=== PATIENT | female | born 1965 | race African-American/Black ===

== ENCOUNTER 2021-07-19 15:43 | Inpatient (IN) | payer OTHER ==
[~2021-07-19] VITALS: Ht 162.6 cm; Wt 91.0 kg
--- NOTE | 2021-07-19 16:07 | PHYS DOC ---
Past Medical History Past Medical History: High Cholesterol, Hypertension, Vascular Disease Past Medical History Aortic aneurysm Past Surgical History Aortic aneurysm repair Smoking Status: Never Smoker Alcohol Use: None Drug Use: None General Adult EDM: Chief Complaint: CHEST PAIN HPI: HPI: Patient is a 56 year old female who presents with an episode of chest pain which began last night. She describes midsternal chest pressure, radiating across her right and left chest, 3 to her left back. Sometimes lasted several minutes, then resolved. She decided to go to bed, then when she woke up today she has had intermittent midsternal chest pressure. She denies any dyspnea, denies pleuritic pain. Denies cough hemoptysis. Denies fevers or chills. She denies dizziness or diaphoresis. Denies lower extremity pain or swelling. Denies syncope or near syncope. Denies exertional pain. Several years ago she underwent a descending aortic aneurysm repair. She reports having no issues with that since that time. She is not taking anticoagulant medications. She denies any history of aortic dissection. Review of Systems: Review of Systems: As per HPI. Heart Score: C/O Chest Pain: Yes HEART Score for Chest Pain: HEART Score for Chest Pain Response (Comments) Value History Highly Suspicious 2 ECG Nonspecific Repolarizatio 1 Age >45 - < 65 1 Risk Factors 1 or 2 Risk Factors 1 Total 5 Risk Factors: Risk Factors: DM, Current or recent (<one month) smoker, HTN, HLP, family history of CAD, obesity. Risk Scores: Score 0 - 3: 2.5% MACE over next 6 weeks - Discharge Home Score 4 - 6: 20.3% MACE over next 6 weeks - Admit for Clinical Observation Score 7 - 10: 72.7% MACE over next 6 weeks - Early Invasive Strategies Allergies: Allergies: Allergies Coded Allergies Type Severity Reaction Last Updated Verified No Known Drug Allergies 07/19/21 No Physical Exam: PE: Constitutional: Well developed, well nourished, no acute distress, non-toxic appearance. [] HENT: Normocephalic, atraumatic, bilateral external ears normal, oropharynx moist, no oral exudates, nose normal. [] Eyes: PERRLA, EOMI, conjunctiva normal, no discharge. [] Neck: Normal range of motion, no tenderness, supple, no stridor. [] Cardiovascular:Heart rate regular rhythm, no murmur [] Lungs & Thorax: Bilateral breath sounds clear to auscultation [] Abdomen: Bowel sounds normal, soft, no tenderness, no masses, no pulsatile masses. [] Skin: Warm, dry, no erythema, no rash. [] Back: No tenderness, no CVA tenderness. [] Extremities: No tenderness, no cyanosis, no clubbing, ROM intact, no edema. [] Neurologic: Alert and oriented X 3, normal motor function, normal sensory function, no focal deficits noted. [] Psychologic: Affect normal, judgement normal, mood normal. [] Current Patient Data: Vital Signs: Vital Signs Date Time Temp Pulse Resp B/P (MAP) Pulse Ox O2 Delivery O2 Flow Rate FiO2 07/19/21 15:46 98.1 70 20 241/110 (153) 100 Room Air 98.1 EKG: EKG: EKG is interpreted at 1600 Rhythm is sinus Rate is 74 bpm [place] is normal No STEMI Radiology/Procedures: Radiology/Procedures: IMAGING REPORT Signed PATIENT: KOLE LLANOS ACCOUNT: [id number] : 1965 LOCATION: ER AGE: 56 SEX: F EXAM STATUS: REG ER ORD. PHYSICIAN: ABDOULAYE DAUGHERTY DO REASON: chest pain, hx of aortic aneurysm PROCEDURE: CT ANGIO CHEST ABD PELVIS PQRS Compliance Statement: One or more of the following individualized dose reduction techniques were utilized for this examination: 1. Automated exposure control 2. Adjustment of the mA and/or kV according to patient size 3. Use of iterative reconstruction technique CTA CHEST_ABDOMEN_AND PELVIS 07/19/2021 5:31 PM INDICATION: Chest pain, history of aortic aneurysm. COMPARISON: None avail06/23/2018able TECHNIQUE: Multiple axial CT images of the chest, abdomen and pelvis were obtained before and after the intravenous administration of 100 mL Omnipaque 350. Coronal and sagittal reformats are provided. Maximum intensity projection images are provided. FINDINGS: Thyroid gland is normal in appearance. There are no pathologically enlarged axillary, mediastinal or hilar lymph nodes. Heart size is within normal limits. Aortic stent graft is identified extending from the origin the left subclavian artery to the mid to distal descending thoracic aorta. There is an excluded aneurysm involving the descending aortic arch which measures 5.2 cm. No contrast is identified beyond the stent graft. Ascending thoracic aorta measures 3.7 cm. There is no significant pericardial effusion. Thoracic esophagus is normal in appearance. Anterior chest wall appears intact. No suspicious solid noncalcified pulmonary nodule. There are no pleural effusions, pulmonary vascular congestion or pneumothorax. Lungs are clear without focal airspace consolidation. Central airways are clear. Liver, spleen, adrenal glands, pancreas and gallbladder are normal in appearance. The abdominal aorta is normal in course and caliber. There is no aortic dissection. Superior mesenteric artery, celiac axis and renal arteries are widely patent. Common iliac arteries, internal iliac arteries and external iliac arteries are widely patent. There are no pathologically enlarged lymph nodes in the abdomen and pelvis. There is no abdominal free fluid. There is no free intraperitoneal air. Small and large bowel are normal in caliber. There is no evidence for bowel obstruction. There are no pericolonic inflammatory changes. A normal, nondilated appendix is visualized without adjacent inflammatory changes. Limited evaluation of the left colon secondary to underdistention. Small local hernia containing fat. The kidneys enhance symmetrically. There is no suspicious renal mass. There is no hydronephrosis. There are no suspected calculi within the kidneys, ureters or urinary bladder. Urinary bladder is within normal limits given degree of diste ntion. Uterus is normal by CT. Mild adnexal varices. No suspicious adnexal mass. No suspicious osseous abnormality. No paraspinal soft tissue mass. IMPRESSION: 1. Aortic stent graft is identified extending distal to the origin of the left subclavian through the mid to distal descending thoracic aorta. 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 2. No aortic dissection. 3. No acute abnormality within the abdomen and pelvis. Electronically signed by: Yony Vargas MD (07/19/2021 6:44 PM) [facility] DICTATED and SIGNED BY: YONY VARGAS MD DATE: 07/19/211829 Course & Med Decision Making: Course & Med Decision Making Pertinent Labs and Imaging studies reviewed. (See chart for details) Patient had already taken her aspirin at home today. Nitropaste and IV labetalol given. Tylenol given for headache. Blood pressure is improving modestly. She is resting comfortably. She denies any active chest pain at this time. Initial troponin is negative. CTA does not reveal any acute dissection. No endoleak. I have discussed the findings, differential diagnosis and plan of care with her. I recommend hospitalization, troponin trending, cardiology consultation. She is comfortable with the plan of care. She is excepted for admission by Dr. Demar Ashley Disclaimer: Gabi Disclaimer: This electronic medical record was generated, in whole or in part, using a voice recognition dictation system. Departure Departure Impression: Primary Impression: Chest pain Qualified Codes: R07.9 - Chest pain, unspecified Additional Impression: Hypertensive emergency Disposition: ADMITTED INPATIENT Admitting Physician: MARCELLO (Dr. Benz) Condition: GUARDED DAT,ABDOULAYE Parisi DO Jul 19, 2021 16:07
--- NOTE | 2021-07-19 16:25 | EKG ---
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
[2021-07-19] MEDS ORDERED: NITROGLYCERIN OINT 1 GM PACKET. TP ONE (16:45)
[2021-07-19 16:58] LABS: BASO % 1 % (0-3); EOS # 0.1 x10^3/uL (0.0-0.7); EOS % 1 % (0-3); HEMATOCRIT 40.8 % (36.0-47.0); HEMOGLOBIN 13.4 g/dL (12.0-15.5); LYMPH # 1.9 x10^3/uL (1.0-4.8); LYMPH % 25 % (24-48); MEAN CORPUSCULAR HEMOGLOBIN 30 pg (25-35); MEAN CORPUSCULAR HGB CONC 33 g/dL (31-37); MEAN CORPUSCULAR VOLUME 91 fL (79-100); MONO # 0.6 x10^3/uL (0.0-1.1); MONO % 8 % (0-9); NEUT % 65 % (31-73); PLATELET COUNT 232 x10^3/uL (140-400); WHITE BLOOD COUNT 7.7 x10^3/uL (4.0-11.0)
[2021-07-19 17:12] LABS: CALCIUM 9.6 mg/dL (8.5-10.1); CREATININE 0.8 mg/dL (0.6-1.0); GFR 90.1; POTASSIUM 3.6 mmol/L (3.5-5.1)
[2021-07-19 17:18] LABS: ALBUMIN 3.8 g/dL (3.4-5.0); ALBUMIN/GLOBULIN RATIO 0.9 (1.0-1.7); TOTAL BILIRUBIN 0.5 mg/dL (0.2-1.0); TOTAL PROTEIN 8.2 g/dL (6.4-8.2)
[2021-07-19] MEDS ORDERED: IOHEXOL 350 MG/ML 100 ML VIAL. IV ONE (17:45)
[2021-07-19] MEDS ORDERED: CONTRAST GIVEN. MC PRN (17:45)
[2021-07-19] MEDS ORDERED: ACETAMINOPHEN 500 MG TABLET PO ONE (18:45)
[2021-07-19] MEDS ORDERED: LABETALOL 20 MG/4 ML DISP.SYRIN. IVP ONE (18:45)
--- NOTE | 2021-07-19 18:47 | RAD ---
PQRS Compliance Statement: One or more of the following individualized dose reduction techniques were utilized for this examinat ion: 1. Automated exposure control 2. Adjustment of the mA and/or kV according to patient size 3. Use of iterative reconstruction technique CTA CHEST_ABDOMEN_AND PELVIS 07/19/2021 5:31 PM INDICATION: Chest pain, history of aortic aneurysm. COMPARISON: None avail06/23/2018able TECHNIQUE: Multiple axial CT images of the chest, abdomen and pelvis were obtained before and after t he intravenous administration of 100 mL Omnipaque 350. Coronal and sagittal reformats are provided. M aximum intensity projection images are provided. FINDINGS: Thyroid gland is normal in appearance. There are no pathologically enlarged axillary, mediastinal or hilar lymph nodes. Heart size is within normal limits. Aortic stent graft is identified extending from the origin the left subclavian artery to the mid to distal descending thoracic aorta. There is an excluded aneurysm involving the descendi ng aortic arch which measures 5.2 cm. No contrast is identified beyond the stent graft. Ascending tho racic aorta measures 3.7 cm. There is no significant pericardial effusion. Thoracic esophagus is norm al in appearance. Anterior chest wall appears intact. No suspicious solid noncalcified pulmonary nodule. There are no pleural effusions, pulmonary vascular congestion or pneumothorax. Lungs are clear without focal airspace consolidation. Central airways ar e clear. Liver, spleen, adrenal glands, pancreas and gallbladder are normal in appearance. The abdominal aorta is normal in course and caliber. There is no aortic dissection. Superior mesenter ic artery, celiac axis and renal arteries are widely patent. Common iliac arteries, internal iliac ar teries and external iliac arteries are widely patent. There are no pathologically enlarged lymph node s in the abdomen and pelvis. There is no abdominal free fluid. There is no free intraperitoneal air. Small and large bowel are normal in caliber. There is no evidence for bowel obstruction. There are no pericolonic inflammatory changes. A normal, nondilated appendix is visualized without adjacent infla mmatory changes. Limited evaluation of the left colon secondary to underdistention. Small local herni a containing fat. The kidneys enhance symmetrically. There is no suspicious renal mass. There is no hydronephrosis. The re are no suspected calculi within the kidneys, ureters or urinary bladder. Urinary bladder is within normal limits given degree of distention. Uterus is normal by CT. Mild adnexal varices. No suspiciou s adnexal mass. No suspicious osseous abnormality. No paraspinal soft tissue mass. IMPRESSION: 1. Aortic stent graft is identified extending distal to the origin of the left subclavian through the mid to distal descending thoracic aorta. There is an aneurysm of the descending aortic arch which me asures up to 5.2 cm without evidence for endoleak. 2. No aortic dissection. 3. No acute abnormality within the abdomen and pelvis. Electronically signed by: Katherine Alvarez MD (07/19/2021 6:44 PM) [facility]
[2021-07-19] MEDS ORDERED: ONDANSETRON PF 4 MG/2 ML VIAL. IVP PRN (19:15)
[2021-07-19] MEDS ORDERED: ACETAMINOPHEN 325 MG TABLET. PO PRN (19:15)
[2021-07-19] MEDS ORDERED: IV NORMAL SALINE 1000ML BAG 1,000 ML IV ONE (19:15)
[2021-07-19 20:40] VITALS: BP 186/102
[2021-07-19] MEDS ORDERED: METF750T39 PO (21:01)
[2021-07-19] MEDS ORDERED: ASCO500C PO (21:01)
[2021-07-19] MEDS ORDERED: LOSA100T14 PO (21:01)
[2021-07-19] MEDS ORDERED: GLIM4TAB8 PO (21:01)
[2021-07-19] MEDS ORDERED: ASPI-630 PO (21:01)
[2021-07-19] MEDS ORDERED: FERR325T3 PO (21:01)
[2021-07-19] MEDS ORDERED: AMLO-187 PO (21:01)
[2021-07-19] MEDS ORDERED: CARV25TA2 PO (21:01)
--- NOTE | 2021-07-19 21:56 | NUR ---
Admission note patient arrived to unit at 2044. oriented to nurse call light system and routines. belongings with patient charted. med rec completed. pt alert and oriented. able to ambulate from ER [facility] to bed. no complaints of pain at this time. Dr. Benz paged and return page received now. Alerted of arrival to unit and BP and blood glucose. Provider to place orders.
[2021-07-19] MEDS ORDERED: DEXTROSE 50% 25 GM / 50ML DISP.SYRIN. IV PRN (22:15)
[2021-07-19] MEDS ORDERED: IV DEXTROSE 5% 250 ML BAG. IV PRN (22:15)
[2021-07-19 22:43] VITALS: BP 168/94
[2021-07-19] MEDS: hydrALAZINE 20 MG/ML VIAL. IVP PRN (23:25)
[2021-07-20] VITALS (7 sets, daily range): BP systolic 145–222; BP diastolic 73–109
--- NOTE | 2021-07-20 07:55 | PDOC1 ---
History and Physical Date of Admission Date of Admission DATE: 07/20/21 TIME: 07:44 Identification/Chief Complaint Chief Complaint Chest pain Source Source: Patient History of Present Illness History of Present Illness Ms Cottrell is a 56 year old female w/ PMHx High Cholesterol, Hypertension, Vascular Disease, aortic aneursym s/p endograft repair who presents with an episode of chest pain which began last night. She describes midsternal chest pressure, radiating across her right and left chest, 3 to her left back. Sometimes lasted several minutes, then resolved. She decided to go to bed, then when she woke up today she has had intermittent midsternal chest pressure. She denies any dyspnea, denies pleuritic pain. Denies cough hemoptysis. Denies fevers or chills. She denies dizziness or diaphoresis. Denies lower extremity pain or swelling. Denies syncope or near syncope. Denies exertional pain. Several years ago in 2016 she underwent a descending aortic aneurysm repair. She reports having no issues with that since that time. She is not taking anticoagulant medications. She denies any history of aortic dissection. She sees Dr. James from cardiology and Dr. Amador at [facility] primary care. Previously had been on HCTZ when she lived in [place] and has been taken off that she thinks due to hypokalemia. 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 EKG sinus rate of 74 bpm normal axis AK interval extended to T10, QTC 407. No ST segment elevations or depressions no TWI For blood pressure control she was put on Nitropaste and given IV labetalol with minimal improvement admitted for further care Past Medical History Cardiovascular: HTN Endocrine: Diabetes Past Surgical History Past Surgical History: Other (Aortic aneursym repair 2016) Family History Family History: Diabetes, Heart Disease, High Cholestrol, Hypertension Social History Smoke: No ALCOHOL: rare Drugs: None Current Problem List Problem List Problems Medical Problems: (1) Chest pain Status: Acute (2) Hypertensive emergency Status: Acute Current Medications Current Medications Current Medications Nitroglycerin (Nitro-Bid Oint) 1 inch 1X ONCE TP Last administered on 07/19/21at 16:31; Start 07/19/21 at 16:45; Stop 07/19/21 at 16:46; Status DC Iohexol (Omnipaque 350 Mg/ml) 100 ml 1X ONCE IV Last administered on 07/19/21at 17:42; Start 07/19/21 at 17:45; Stop 07/19/21 at 17:46; Status DC Info (CONTRAST GIVEN -- Rx MONITORING) 1 each PRN DAILY PRN MC SEE COMMENTS; Start 07/19/21 at 17:45; Stop 07/21/21 at 17:44 Acetaminophen (Tylenol) 1,000 mg 1X ONCE PO Last administered on 07/19/21at 18:44; Start 07/19/21 at 18:45; Stop 07/19/21 at 18:46; Status DC Labetalol HCl (Normodyne Iv Push) 10 mg 1X ONCE IVP Last administered on 07/19/21at 18:40; Start 07/19/21 at 18:45; Stop 07/19/21 at 18:46; Status DC Ondansetron HCl (Zofran) 4 mg PRN Q8HRS PRN IVP NAUSEA/VOMITING; Start 07/19/21 at 19:15; Stop 07/20/21 at 19:14 Acetaminophen (Tylenol) 650 mg PRN Q4HRS PRN PO pain or fever; Start 07/19/21 at 19:15 Sodium Chloride 1,000 ml @ 75 mls/hr 1X ONCE IV Last administered on 07/19/21at 22:33; Start 07/19/21 at 19:15; Stop 07/20/21 at 08:34 Amlodipine Besylate (Norvasc) 10 mg DAILY PO ; Start 07/20/21 at 09:00 Carvedilol (Coreg) 25 mg BIDWMEALS PO ; Start 07/20/21 at 08:00 Losartan Potassium (Cozaar) 100 mg DAILY PO ; Start 07/20/21 at 09:00 Non-Formulary Medication (Metformin Hcl (Metformin Hcl Er)) 1 tab DAILY08 PO ; Start 07/22/21 at 08:00; Status UNV Hydralazine HCl (Apresoline Inj) 10 mg PRN Q4HRS PRN IVP ELEVATED BP, SEE COMMENTS Last administered on 07/19/21at 23:25; Start 07/19/21 at 22:15 Insulin Human Lispro (HumaLOG) 0-7 UNITS TIDWMEALS SQ ; Start 07/20/21 at 08:00 Dextrose (Dextrose 50%-Water Syringe) 12.5 gm PRN Q15MIN PRN IV SEE COMMENTS; Start 07/19/21 at 22:15 Dextrose (Iv Dextrose 5%) 250 ml PRN Q15MIN PRN IV SEE COMMENTS; Start 07/19/21 at 22:15 Active Scripts Active Reported Ferrous Sulfate 325 Mg Tablet.dr 325 Mg PO DAILY Vitamin C (Ascorbic Acid) 500 Mg Capsule.er 1,000 Mg PO DAILY Metformin Hcl Er (Metformin Hcl) 750 Mg Tab.er.24h 1 Tab PO DAILY 30 Days Amlodipine Besylate 10 Mg Tablet 10 Mg PO DAILY Carvedilol 25 Mg Tablet 25 Mg PO BIDWMEALS Losartan Potassium 100 Mg Tablet 100 Mg PO DAILY Glimepiride 4 Mg Tablet 1 Tab PO DAILY Aspirin 81 Mg Tab.chew 1 Tab PO DAILY Allergies Allergies: Coded Allergies: No Known Drug Allergies (Unverified , 07/19/21) ROS General: YES: Fatigue, Malaise; No: Chills, Night Sweats, Appetite, Other PSYCHOLOGICAL ROS: No: Anxiety, Behavioral Disorder, Concentration difficultie, Decreased libido, Depression, Disorientation, Hallucinations, Hostility, Irritablity, Memory difficulties, Mood Swings, Obsessive thoughts, Physical abuse, Sexual abuse, Sleep disturbances, Suicidal ideation, Other Eyes: No Blurry vision, No Decreased vision, No Double vision, No Dry eyes, No Excessive tearing, No Eye Pain, No Itchy Eyes, No Loss of vision, No Phot ophobia, No Scotomata, No Uses contacts, No Uses glasses, No Other HEENT: No: Heacaches, Visual Changes, Hearing change, Nasal congestion, Nasal discharge, Oral lesions, Sinus pain, Sore Throat, Epistaxis, Sneezing, Snoring, Tinnitus, Vertigo, Vocal changes, Other ALLERGY AND IMMUNOLOGY: No: Hives, Insect Bite Sensitivity, Itchy/Watery Eyes, Nasal Congestion, Post Nasal Drip, Seasonal Allergies, Other Hematological and Lymphatic: No: Bleeding Problems, Blood Clots, Blood Transfusions, Brusing, Night Sweats, Pallor, Swollen Lymph Nodes, Other ENDOCRINE: No: Breast Changes, Galactorrhea, Hair Pattern Changes, Hot Flashes, Malaise/lethargy, Mood Swings, Palpitations, Polydipsia/polyuria, Skin Changes, Temperature Intolerance, Unexpected Weight Changes, Other Breast: No New/Changing Breast Lumps, No Nipple changes, No Nipple discharge, No Other Respiratory: YES: Shortness of breath, SOB with excertion; No: Cough, Hemoptysis, Orthopnea, Pleuritic Pain, Sputum Changes, Stridor, Tachypnea, Wheezing, Other Cardiovascular: yes Chest Pain; No Palpitations, No Orthopnea, No Paroxysmal Noc. Dyspnea, No Edema, No Lt Headedness, No Other Gastrointestinal: Yes Nausea; No Vomiting, No Abdominal Pain, No Diarrhea, No Constipation, No Melena, No Hematochezia, No Other Genitourinary: No Dysuria, No Frequency, No Incontinence, No Hematuria, No Retention, No Discharge, No Urgency, No Pain, No Flank Pain, No Other, No , No , No , No , No , No , No Musculoskeletal: No Gait Disturbance, No Joint Pain, No Joint Stiffness, No Joint Swelling, No Muscle Pain, No Muscular Weakness, No Pain In:, No Swelling In:, No Other Neurological: No Behavorial Changes, No Bowel/Bladder ControlChng, No Confusion, No Dizziness, No Gait Disturbance, No Headaches, No Impaired Coord/balance, No Memory Loss, No Numbness/Tingling, No Seizures, No Speech Problems, No Tremors, No Visual Changes, No Weakness, No Other Skin: No Dry Skin, No Eczema, No Hair Changes, No Lumps, No Mole Changes, No Mottling, No Nail Changes, No Pruritus, No Rash, No Skin Lesion Changes, No Other, No Acne Physical Exam General: Alert, Oriented X3, Cooperative, mild distress HEENT: Atraumatic, PERRLA, EOMI, Mucous membr. moist/pink Lungs: Clear to auscultation, Normal air movement Heart: S1S2, RRR, no thrills, no rubs, no gallops, no murmurs Abdomen: Normal bowel sounds, Soft, No tenderness, No hepatosplenomegaly, No masses Rectal Exam: not examined Extremities: No clubbing, No cyanosis, No edema, Normal pulses, No tenderness/swelling Skin: No rashes, No breakdown, No significant lesion Neuro: Normal gait, Normal speech, Strength at 5/5 X4 ext, Normal tone, Sensa tion intact, Cranial nerves 3-12 NL, Reflexes 2+ Psych/Mental Status: Mental status NL, Mood NL Vitals Vitals Vital Signs Date Time Temp Pulse Resp B/P (MAP) Pulse Ox O2 Delivery O2 Flow Rate FiO2 07/20/21 02:17 98.3 82 18 145/78 (100) 92 Room Air 98.3 Labs Labs Laboratory Tests Test 07/19/21 16:00 07/19/21 21:25 07/19/21 22:00 07/20/21 05:00 White Blood Count 7.7 x10^3/uL (4.0-11.0) Red Blood Count 4.50 x10^6/uL (3.50-5.40) Hemoglobin 13.4 g/dL (12.0-15.5) Hematocrit 40.8 % (36.0-47.0) Mean Corpuscular Volume 91 fL (79-100) Mean Corpuscular Hemoglobin 30 pg (25-35) Mean Corpuscular Hemoglobin Concent 33 g/dL (31-37) Red Cell Distribution Width 14.0 % (11.5-14.5) Platelet Count 232 x10^3/uL (140-400) Neutrophils (%) (Auto) 65 % (31-73) Lymphocytes (%) (Auto) 25 % (24-48) Monocytes (%) (Auto) 8 % (0-9) Eosinophils (%) (Auto) 1 % (0-3) Basophils (%) (Auto) 1 % (0-3) Neutrophils # (Auto) 5.0 x10^3/uL (1.8-7.7) Lymphocytes # (Auto) 1.9 x10^3/uL (1.0-4.8) Monocytes # (Auto) 0.6 x10^3/uL (0.0-1.1) Eosinophils # (Auto) 0.1 x10^3/uL (0.0-0.7) Basophils # (Auto) 0.0 x10^3/uL (0.0-0.2) Sodium Level 140 mmol/L (136-145) Potassium Level 3.6 mmol/L (3.5-5.1) Chloride Level 103 mmol/L (98-107) Carbon Dioxide Level 30 mmol/L (21-32) Anion Gap 7 (6-14) Blood Urea Nitrogen 12 mg/dL (7-20) Creatinine 0.8 mg/dL (0.6-1.0) Estimated GFR (Cockcroft-Gault) 90.1 BUN/Creatinine Ratio 15 (6-20) Glucose Level 140 mg/dL (70-99) Calcium Level 9.6 mg/dL (8.5-10.1) Magnesium Level 2.0 mg/dL (1.8-2.4) Total Bilirubin 0.5 mg/dL (0.2-1.0) Aspartate Amino Transf (AST/SGOT) 18 U/L (15-37) Alanine Aminotransferase (ALT/SGPT) 31 U/L (14-59) Alkaline Phosphatase 111 U/L (46-116) Troponin I High Sensitivity 9 ng/L (4-50) 9 ng/L (4-50) 9 ng/L (4-50) QM-Ojo-C-Type Natriuretic Peptide 77 pg/mL (0-124) Total Protein 8.2 g/dL (6.4-8.2) Albumin 3.8 g/dL (3.4-5.0) Albumin/Globulin Ratio 0.9 (1.0-1.7) Lipase 65 U/L (73-393) Glucose (Fingerstick) 230 mg/dL (70-99) Laboratory Tests Test 07/19/21 16:00 07/19/21 21:25 07/19/21 22:00 07/20/21 05:00 White Blood Count 7.7 x10^3/uL (4.0-11.0) Red Blood Count 4.50 x10^6/uL (3.50-5.40) Hemoglobin 13.4 g/dL (12.0-15.5) Hematocrit 40.8 % (36.0-47.0) Mean Corpuscular Volume 91 fL (79-100) Mean Corpuscular Hemoglobin 30 pg (25-35) Mean Corpuscular Hemoglobin Concent 33 g/dL (31-37) Red Cell Distribution Width 14.0 % (11.5-14.5) Platelet Count 232 x10^3/uL (140-400) Neutrophils (%) (Auto) 65 % (31-73) Lymphocytes (%) (Auto) 25 % (24-48) Monocytes (%) (Auto) 8 % (0-9) Eosinophils (%) (Auto) 1 % (0-3) Basophils (%) (Auto) 1 % (0-3) Neutrophils # (Auto) 5.0 x10^3/uL (1.8-7.7) Lymphocytes # (Auto) 1.9 x10^3/uL (1.0-4.8) Monocytes # (Auto) 0.6 x10^3/uL (0.0-1.1) Eosinophils # (Auto) 0.1 x10^3/uL (0.0-0.7) Basophils # (Auto) 0.0 x10^3/uL (0.0-0.2) Sodium Level 140 mmol/L (136-145) Potassium Level 3.6 mmol/L (3.5-5.1) Chloride Level 103 mmol/L (98-107) Carbon Dioxide Level 30 mmol/L (21-32) Anion Gap 7 (6-14) Blood Urea Nitrogen 12 mg/dL (7-20) Creatinine 0.8 mg/dL (0.6-1.0) Estimated GFR (Cockcroft-Gault) 90.1 BUN/Creatinine Ratio 15 (6-20) Glucose Level 140 mg/dL (70-99) Calcium Level 9.6 mg/dL (8.5-10.1) Magnesium Level 2.0 mg/dL (1.8-2.4) Total Bilirubin 0.5 mg/dL (0.2-1.0) Aspartate Amino Transf (AST/SGOT) 18 U/L (15-37) Alanine Aminotransferase (ALT/SGPT) 31 U/L (14-59) Alkaline Phosphatase 111 U/L (46-116) Troponin I High Sensitivity 9 ng/L (4-50) 9 ng/L (4-50) 9 ng/L (4-50) WB-Wwb-C-Type Natriuretic Peptide 77 pg/mL (0-124) Total Protein 8.2 g/dL (6.4-8.2) Albumin 3.8 g/dL (3.4-5.0) Albumin/Globulin Ratio 0.9 (1.0-1.7) Lipase 65 U/L (73-393) Glucose (Fingerstick) 230 mg/dL (70-99) Images Images CT ANGIO CHEST ABD PELVIS Thyroid gland is normal in appearance. There are no pathologically enlarged axillary, mediastinal or hilar lymph nodes. Heart size is within normal limits. Aortic stent graft is identified extending from the origin the left subclavian artery to the mid to distal descending thoracic aorta. There is an excluded aneurysm involving the descending aortic arch which measures 5.2 cm. No contrast is identified beyond the stent graft. Ascending thoracic aorta measures 3.7 cm. There is no significant pericardial effusion. Thoracic esophagus is normal in appearance. Anterior chest wall appear s intact. No suspicious solid noncalcified pulmonary nodule. There are no pleural effusions, pulmonary vascular congestion or pneumothorax. Lungs are clear without focal airspace consolidation. Central airways are clear. Liver, spleen, adrenal glands, pancreas and gallbladder are normal in appearance. The abdominal aorta is normal in course and caliber. There is no aortic dissec tion. Superior mesenteric artery, celiac axis and renal arteries are widely patent. Common iliac arteries, internal iliac arteries and external iliac arteries are widely patent. There are no pathologically enlarged lymph nodes in the abdomen and pelvis. There is no abdominal free fluid. There is no free intraperitoneal air. Small and large bowel are normal in caliber. There is no e vidence for bowel obstruction. There are no pericolonic inflammatory changes. A normal, nondilated appendix is visualized without adjacent inflammatory changes. Limited evaluation of the left colon secondary to underdistention. Small local hernia containing fat. The kidneys enhance symmetrically. There is no suspicious renal mass. There is no hydronephrosis. There are no suspected calculi within the kidneys, ureters or urinary bladder. Urinary bladder is within normal limits given degree of distention. Uterus is normal by CT. Mild adnexal varices. No suspicious adnexal mass. No suspicious osseous abnormality. No paraspinal soft tissue mass. IMPRESSION: 1. Aortic stent graft is identified extending distal to the origin of the left subclavian through the mid to distal descending thoracic aorta. There is an aneurysm of the descending aortic arch which measures up to 5.2 cm without e vidence for endoleak. 2. No aortic dissection. 3. No acute abnormality within the abdomen and pelvis. VTE Prophylaxis Ordered VTE Prophylaxis Devices: No VTE Pharmacological Prophylaxi: Yes Assessment/Plan Assessment/Plan Chest pain - due to high BP HTN urgency - labile, will add imdur given nitro improvement. previously stopped on thiazide HLP - statin DM2 - sliding scale insulin, sulfonylurea Hx of descending aortic aneurysm repair: stable per CTA FEN - Cardiac ADA diet PPX - heparin FULL CODE Dispo - inpatient Justifications for Admission Other Justification ANGELIKA ELLIOTT MD Jul 20, 2021 07:54
[2021-07-20] MEDS ORDERED: ONDANSETRON PF 4 MG/2 ML VIAL. IVP PRN (08:00)
--- NOTE | 2021-07-20 08:07 | PDOC2 ---
[employer]IP [employer]W MACHINE [employer] 07/20/21 0807: CARDIAC CONSULT DATE OF CONSULT Date of Consult DATE: 07/20/21 TIME: 08:01 REASON FOR CONSULT Reason for Consult: Chest pain, HTN emergency REFERRING PHYSICIAN Referring Physician: Hood SOURCE Source: Chart review, Patient HISTORY OF PRESENT ILLNESS HISTORY OF PRESENT ILLNESS This is a pleasant 56 yo female admitted for complains of chest pain. Reports that this is like burping and then spread out. No tightness, no nausea or vomiting, diaphoresis or palpitations. No abdominal pain. No TRUJILLO nor confusion nor focal neuro symptoms. She reports that last week her BP was normal. She sees Dr. James her manager golf at [facility]. No prior stress test but did have endograft repair of her descending aorta in 2016. Reports compliance with her multiple BP meds but not compliant with her diet. Also has not had sleep study as she could not afford it in the past. Positive for mid day sleepiness and nightime snoring. PAST MEDICAL HISTORY Cardiovascular: HTN, Hyperlipidemia, Other (descending aortic aneurysm) GI: GERD Endocrine: Diabetes PAST SURGICAL HISTORY Past Surgical History: , Other (descending aortic aneurysm repair) FAMILY HISTORY Family History: Hypertension, Other (aneurysm mother) SOCIAL HISTORY Smoke: No ALCOHOL: occassional Drugs: None Lives: with Family CURRENT MEDICATIONS CURRENT MEDICATIONS Current Medications Medications (Trade) Dose Ordered Sig/Mendoza Route PRN Reason Start Time Stop Time Status Last Admin Dose Admin Nitroglycerin (Nitro-Bid Oint) 1 inch 1X ONCE TP 07/19/21 16:45 07/19/21 16:46 DC 07/19/21 16:31 Iohexol (Omnipaque 350 Mg/ml) 100 ml 1X ONCE IV 07/19/21 17:45 07/19/21 17:46 DC 07/19/21 17:42 Acetaminophen (Tylenol) 1,000 mg 1X ONCE PO 07/19/21 18:45 07/19/21 18:46 DC 07/19/21 18:44 Labetalol HCl (Normodyne Iv Push) 10 mg 1X ONCE IVP 07/19/21 18:45 07/19/21 18:46 DC 07/19/21 18:40 Sodium Chloride 1,000 ml @ 75 mls/hr 1X ONCE IV 07/19/21 19:15 07/20/21 08:34 07/19/21 22:33 Hydralazine HCl (Apresoline Inj) 10 mg PRN Q4HRS PRN IVP ELEVATED BP, SEE COMMENTS 07/19/21 22:15 07/19/21 23:25 ALLERGIES ALLERGIES: Coded Allergies: No Known Drug Allergies (Unverified , 07/19/21) ROS Review of System 14 point ROS evaluated with pertinent positives noted per HPI PHYSICAL EXAM General: Alert, Oriented X3, Cooperative Heart: Regular rate (SR), Normal S1, Normal S2, Other (3/6 systolic murmur to SYL border) Abdomen: Soft, No tenderness Extremities: No cyanosis, No edema Skin: No breakdown, No significant lesion Neuro: Normal speech, Sensation intact Psych/Mental Status: Mental status NL, Mood NL MUSCULOSKELETAL: Osteoarthritic changes both hands VITALS/I&O VITALS/I&O: Vital Signs Date Time Temp Pulse Resp B/P (MAP) Pulse Ox O2 Delivery O2 Flow Rate FiO2 07/20/21 02:17 98.3 82 18 145/78 (100) 92 Room Air 98.3 I & O 07/19/21 07/19/21 07/20/21 15:00 23:00 07:00 Intake Total 150 ml Output Total 300 ml Balance 150 ml -300 ml LABS Lab: Laboratory Tests Test 07/19/21 16:00 07/19/21 21:25 07/19/21 22:00 07/20/21 05:00 White Blood Count 7.7 x10^3/uL (4.0-11.0) Red Blood Count 4.50 x10^6/uL (3.50-5.40) Hemoglobin 13.4 g/dL (12.0-15.5) Hematocrit 40.8 % (36.0-47.0) Mean Corpuscular Volume 91 fL (79-100) Mean Corpuscular Hemoglobin 30 pg (25-35) Mean Corpuscular Hemoglobin Concent 33 g/dL (31-37) Red Cell Distribution Width 14.0 % (11.5-14.5) Platelet Count 232 x10^3/uL (140-400) Neutrophils (%) (Auto) 65 % (31-73) Lymphocytes (%) (Auto) 25 % (24-48) Monocytes (%) (Auto) 8 % (0-9) Eosinophils (%) (Auto) 1 % (0-3) Basophils (%) (Auto) 1 % (0-3) Neutrophils # (Auto) 5.0 x10^3/uL (1.8-7.7) Lymphocytes # (Auto) 1.9 x10^3/uL (1.0-4.8) Monocytes # (Auto) 0.6 x10^3/uL (0.0-1.1) Eosinophils # (Auto) 0.1 x10^3/uL (0.0-0.7) Basophils # (Auto) 0.0 x10^3/uL (0.0-0.2) Sodium Level 140 mmol/L (136-145) Potassium Level 3.6 mmol/L (3.5-5.1) Chloride Level 103 mmol/L (98-107) Carbon Dioxide Level 30 mmol/L (21-32) Anion Gap 7 (6-14) Blood Urea Nitrogen 12 mg/dL (7-20) Creatinine 0.8 mg/dL (0.6-1.0) Estimated GFR (Cockcroft-Gault) 90.1 BUN/Creatinine Ratio 15 (6-20) Glucose Level 140 mg/dL (70-99) H Calcium Level 9.6 mg/dL (8.5-10.1) Magnesium Level 2.0 mg/dL (1.8-2.4) Total Bilirubin 0.5 mg/dL (0.2-1.0) Aspartate Amino Transferase (AST) 18 U/L (15-37) Alanine Aminotransferase (ALT) 31 U/L (14-59) Alkaline Phosphatase 111 U/L (46-116) Troponin I High Sensitivity 9 ng/L (4-50) 9 ng/L (4-50) 9 ng/L (4-50) NJ-Ilt-D-Type Natriuretic Peptide 77 pg/mL (0-124) Total Protein 8.2 g/dL (6.4-8.2) Albumin 3.8 g/dL (3.4-5.0) Albumin/Globulin Ratio 0.9 (1.0-1.7) L Lipase 65 U/L (73-393) L Glucose (Fingerstick) 230 mg/dL (70-99) H Test 07/20/21 07:49 Glucose (Fingerstick) 223 mg/dL (70-99) H Laboratory Tests 07/19/21 16:00 Laboratory Tests 07/19/21 16:00 ASSESSMENT/PLAN ASSESSMENT/PLAN 1. Chest pain: due to high BP 2. HTN urgency: labile 3. HLP 4. DM2 5. Hx of descending aortic aneurysm repair: stable per CTA Recommendations 1. Restart home BP meds and will adjust per BP trend 2. TSH, FLP and TTE 3. Discussed with radiology and no noted renal stenosis per CTA. Will start her on cholrthalidone and continue with home coreg, norvasc, and losartan. Hydralazine if remains labile 4. She follows up with Dr. James as her manager golf at [facility]. She will need a sleep study. DASH diet, outpt MPI. She will also need testing for secondary causes of HTN and would defer this to her primary manager golf. ASA TSAI MD 07/20/21 1794: CARDIAC CONSULT ASSESSMENT/PLAN ASSESSMENT/PLAN Pt. see and examined. Agree with above COMMERCIAL INSTALLER note. Patient has been under significant stress- this is likely culprit for her BP issues as she had normal BP at her doctors office. EKG, trops, echo wnl. Start chlorthalidone, if no improvement, add hydralazine. Ok to DC if BP lower than 160. Thanks [employer] Jul 20, 2021 08:07 ASA TSAI MD Jul 20, 2021 23:14
[2021-07-20] MEDS: LOSARTAN POTASSIUM 50 MG TABLET. PO SCH (08:13)
[2021-07-20] MEDS: ASCORBIC ACID 1,000 MG TABLET PO SCH (08:14)
[2021-07-20] MEDS: GLIMEPIRIDE 2 MG TABLET. PO SCH (08:14)
[2021-07-20] MEDS: CARVEDILOL 12.5 MG TABLET. PO SCH ×2 (08:14→17:17)
[2021-07-20] MEDS: ASPIRIN CHEWABLE 81 MG TABLET. PO SCH (08:15)
[2021-07-20] MEDS ORDERED: hydrALAZINE 20 MG/ML VIAL. IVP PRN (08:15)
[2021-07-20] MEDS: hydrALAZINE 20 MG/ML VIAL. IVP PRN (08:16)
[2021-07-20] MEDS: INSULIN LISPRO 300 UNITS/3 ML VIAL. SQ SCH ×3 (08:18→17:18)
[2021-07-20 08:48] LABS: CHOLESTEROL/HDL RATIO 3.1
--- NOTE | 2021-07-20 10:16 | NUR ---
BP REASSESSED AFTER DOSED WITH PRN HYDRALAZINE. SOME IMPROVEMENT NOTED, BUT STILL SERIOUSLY ELEVATED. CARDIOLOGY ROUNDING ON FLOOR AT THIS TIME, WILL REPORT FOR THEIR INPUT.
--- NOTE | 2021-07-20 10:35 | NUR ---
NURSING REC'D ORDER FOR IVP LABETALOL X1. WILL ADMINISTER ONCE IN OMNICELL
[2021-07-20] MEDS ORDERED: LABETALOL 20 MG/4 ML DISP.SYRIN. IVP ONE (10:45)
[2021-07-20] MEDS ORDERED: CHLORTHALIDONE 25 MG TABLET. PO SCH (12:15)
--- NOTE | 2021-07-20 14:03 | NUR ---
LEFT MESSAGE WITH DR DIXON ALDRIDGE AT [facility]. DR ELLIOTT WANTS TO KNOW THE PATIENT'S HISTORY WITH HCTZ, AND WHEN/WHY PT WAS ADVISED TO STOP TAKING IT.
--- NOTE | 2021-07-20 14:51 | NUR ---
SS following for discharge planning. SS reviewed pt chart and discussed with pt RN. Pt is from home and is currently on room air. Cardiology consulted. SS will continue to follow for discharge planning.
[2021-07-20] MEDS: ISOSORBIDE MONONITRATE ER 30 MG TAB.ER.24H PO SCH (17:16)
--- NOTE | 2021-07-20 17:24 | NUR ---
MEDICATION 1ST DOSE IMDUR GIVEN. PT DECLINES PRN HYDRALAZINE AT THIS TIME. SAYS SHE WANTS TO SEE WHAT THE IMDUR DOES FIRST.
--- NOTE | 2021-07-20 18:27 | CARD ---
MR#: [id number] Date of Study: 07/20/2021 Ordering Physician: SKIP MIKE, Referring Physician: SKIP MIKE Tech: Dari Cespedes [facility] APPROVED REPORT EXAM: Two-dimensional and M-mode echocardiogram with Doppler and color Doppler. Other Information Quality : AverageHR: 84bpm Rhythm : NSR INDICATION Chest Pain RISK FACTORS Hypertension Obesity 2D DIMENSIONS RVDd3.8 (2.9-3.5cm)Left Atrium(2D)3.5 (1.6-4.0cm) IVSd1.6 (0.7-1.1cm)Aortic Root(2D)3.3 (2.0-3.7cm) LVDd3.9 (3.9-5.9cm)LVOT Diameter2.0 (1.8-2.4cm) PWd1.5 (0.7-1.1cm)LVDs2.1 (2.5-4.0cm) FS (%) 46.5 %SV51.9 ml Aortic Valve AoV Peak Haris.199.9cm/sAoV VTI35.6cm AO Peak GR.16.0mmHgLVOT Peak Haris.165.4cm/s AO Mean GR.8mmHgAVA (VMAX)2.62cm2 Mitral Valve MV E Qjlwlhlz12.4cm/sMV DECEL EXKD451zi MV A Kfxwruxl289.6cm/sE/A Ratio0.6 Pulmonary Valve PV Peak Uppdxgsz199.6cm/s Tricuspid Valve TR P. Evkzmhte492rp/sTR Peak Gr.29mmHg LEFT VENTRICLE The left ventricle is normal size. There is mild to moderate concentric left ventricular hypertrophy. The left ventricular systolic function is normal and the ejection fraction is within normal range. LV ejection fraction is 60 to 65%. There is normal LV segmental wall motion. RIGHT VENTRICLE The right ventricle is normal size. There is normal right ventricular wall thickness. The right ventr icular systolic function is normal. ATRIA The left atrium size is normal. The right atrium size is normal. The interatrial septum is intact wit h no evidence for an atrial septal defect or patent foramen ovale as noted on 2-D or Doppler imaging. AORTIC VALVE The aortic valve is normal in structure and function. Doppler and Color Flow revealed no significant aortic regurgitation. There is no significant aortic valvular stenosis. MITRAL VALVE The mitral valve is normal in structure and function. There is no evidence of mitral valve prolapse. There is no mitral valve stenosis. Doppler and Color-flow revealed trace mitral regurgitation. TRICUSPID VALVE The tricuspid valve is normal in structure and function. Doppler and Color Flow revealed mild tricusp id regurgitation. Estimated PAP 32 mmHg. There is no tricuspid valve stenosis. PULMONIC VALVE The pulmonary valve is normal in structure and function. Doppler and Color Flow revealed no pulmonic valvular regurgitation. GREAT VESSELS The aortic root is normal in size. The ascending aorta is normal in size. The IVC is normal in size a nd collapses >50% with inspiration. PERICARDIAL EFFUSION There is no evidence of significant pericardial effusion. Critical Notification Critical Value: No <Conclusion> The left ventricle is normal size. The left ventricular systolic function is normal and the ejection fraction is within normal range. LV ejection fraction is 60 to 65%. There is normal LV segmental wall motion. There is mild to moderate concentric left ventricular hypertrophy. Doppler and Color Flow revealed no significant aortic regurgitation. There is no significant aortic valvular stenosis. Doppler and Color-flow revealed trace mitral regurgitation. Doppler and Color Flow revealed mild tricuspid regurgitation. Estimated PAP 32 mmHg. Signed by : Mayco Anthony MD Electronically Approved : 07/20/2021 18:26:56
[2021-07-21 02:32] VITALS: BP 151/68
[2021-07-21 07:00] VITALS: BP 208/93
[2021-07-21] MEDS ORDERED: FERROUS SULFATE 325 MG TABLET. PO SCH (08:00)
[2021-07-21] MEDS: INSULIN LISPRO 300 UNITS/3 ML VIAL. SQ SCH ×2 (08:00→12:48)
[2021-07-21] MEDS ORDERED: SPIRONOLACTONE 25 MG TABLET PO SCH (09:00)
[2021-07-21] MEDS: LOSARTAN POTASSIUM 50 MG TABLET. PO SCH (09:15)
[2021-07-21] MEDS: ASPIRIN CHEWABLE 81 MG TABLET. PO SCH (09:16)
[2021-07-21] MEDS: ASCORBIC ACID 1,000 MG TABLET PO SCH (09:16)
[2021-07-21] MEDS: GLIMEPIRIDE 2 MG TABLET. PO SCH (09:16)
[2021-07-21] MEDS: ISOSORBIDE MONONITRATE ER 30 MG TAB.ER.24H PO SCH (09:17)
[2021-07-21] MEDS: CARVEDILOL 12.5 MG TABLET. PO SCH (09:18)
[2021-07-21] MEDS: hydrALAZINE 20 MG/ML VIAL. IVP PRN (10:42)
[2021-07-21 10:50] VITALS: BP 217/105
--- NOTE | 2021-07-21 11:09 | PDOC ---
PROGRESS NOTES Date of Service: DATE: 07/21/21 TIME: 11:09 Subjective Subjective Denied any chest pain or shortness of breath Objective Objective Vital Signs Date Time Temp Pulse Resp B/P (MAP) Pulse Ox O2 Delivery O2 Flow Rate FiO2 07/21/21 10:50 99.7 84 18 217/105 (142) 93 Room Air 99.7 Intake and Output 07/21/21 07:00 Intake Total 1240 ml Output Total 1400 ml Balance -160 ml Intake Oral 1240 ml Output Urine Total 1400 ml # Voids 1 Physical Exam Abdomen: Normal bowel sounds, Soft, No tenderness, No hepatosplenomegaly, No masses Heart: Regular rate (SR), Normal S1, Normal S2, Other (3/6 systolic murmur to SYL border) Extremities: No clubbing, No cyanosis, No edema, Normal pulses, No tenderness/swelling General: Alert, Oriented X3, Cooperative, mild distress HEENT: Atraumatic, PERRLA, EOMI, Mucous membr. moist/pink Lungs: Clear to auscultation, Normal air movement MUSCULOSKELETAL: Osteoarthritic changes both hands Neuro: Normal gait, Normal speech, Strength at 5/5 X4 ext, Normal tone, Sensation intact, Cranial nerves 3-12 NL, Reflexes 2+ Psych/Mental Status: Mental status NL, Mood NL Skin: No rashes, No breakdown, No significant lesion Assessment Assessment 1. Chest pain: due to uncontrolled hypertension 2. HTN urgency: Blood pressure continues to be elevated 3. HLP 4. DM2 5. Hx of descending aortic aneurysm repair: stable per CTA Recommendations 1. Change Coreg to labetalol for better control 2. Continue other medications including spironolactone 3. No renal stenosis per CTA. Plan Plan of Care Problems Medical Problems: (1) Chest pain Status: Acute (2) Hypertensive emergency Status: Acute Comment Review of Relevant I have reviewed the following items gracia (where applicable) has been applied. Labs Laboratory Tests Test 07/20/21 16:08 07/20/21 20:11 07/21/21 07:08 Glucose (Fingerstick) 214 mg/dL (70-99) 158 mg/dL (70-99) 153 mg/dL (70-99) Medications Current Medications Chlorthalidone (Thalitone) 25 mg DAILY PO Last administered on 07/20/21at 12:56; Start 07/20/21 at 12:15; Stop 07/20/21 at 14:32; Status DC Ferrous Sulfate (Feosol) 325 mg DAILYWBKFT PO Last administered on 07/21/21at 09:14; Start 07/21/21 at 08:00 Isosorbide Mononitrate (Imdur) 30 mg DAILY PO Last administered on 07/21/21at 09:17; Start 07/20/21 at 14:45 Non-Formulary Medication (Metformin Hcl (Metformin Hcl Er)) 1 tab DAILY08 PO ; Start 07/22/21 at 08:00; Stop 07/20/21 at 07:53; Status DC Spironolactone (Aldactone) 25 mg DAILY PO Last administered on 07/21/21at 09:17; Start 07/21/21 at 09:00 Vitals/I & O Vital Sign - Last 24 Hours 07/20/21 07/20/21 07/20/21 07/20/21 14:41 17:16 17:17 19:00 Temp 99.0 98.8 99.0 98.8 Pulse 89 89 89 90 Resp 17 18 B/P (MAP) 197/90 (125) 197/90 197/90 175/90 (118) Pulse Ox 93 96 O2 Delivery Room Air 07/20/21 07/20/21 07/21/21 07/21/21 20:00 22:27 02:32 07:00 Temp 98.6 97.8 99.4 98.6 97.8 99.4 Pulse 89 82 82 Resp 18 18 18 B/P (MAP) 161/73 (102) 151/68 (95) 208/93 (131) Pulse Ox 95 98 92 O2 Delivery Room Air Room Air Room Air Room Air 07/21/21 07/21/21 07/21/21 07/21/21 09:15 09:16 09:17 09:18 Pulse 82 82 82 82 B/P (MAP) //07/21/21 07/21/21 10:42 10:50 Temp 99.7 99.7 Pulse 82 84 Resp 18 B/P (MAP) 208/ 217/105 (142) Pulse Ox 93 O2 Delivery Room Air Intake and Output 07/20/21 07/20/21 07/21/21 15:00 23:00 07:00 Intake Total 840 ml 400 ml 0 ml Output Total 700 ml 700 ml Balance 140 ml -300 ml 0 ml BLAS CHI MD Jul 21, 2021 11:09
--- NOTE | 2021-07-21 12:18 | PDOC ---
[facility] PROGRESS NOTE Date of Service DOS: DATE: 07/21/21 TIME: 12:18 Chief Complaint Chief Complaint Chest pain - due to high BP HTN urgency - labile, will add imdur given nitro improvement. previously stopped on thiazide HLP - statin DM2 - sliding scale insulin, sulfonylurea Hx of descending aortic aneurysm repair: stable per CTA FEN - Cardiac ADA diet PPX - heparin FULL CODE Dispo - inpatient History of Present Illness History of Present Illness Ms Cottrell is a 56 year old female w/ PMHx High Cholesterol, Hypertension, Vascular Disease, aortic aneursym s/p endograft repair who presents with an episode of chest pain which began last night. She describes midsternal chest pressure, radiating across her right and left chest, 3 to her left back. Sometimes lasted several minutes, then resolved. She decided to go to bed, then when she woke up today she has had intermittent midsternal chest pressure. She denies any dyspnea, denies pleuritic pain. Denies cough hemoptysis. Denies fevers or chills. She denies dizziness or diaphoresis. Denies lower extremity pain or swelling. Denies syncope or near syncope. Denies exertional pain. Several years ago in 2016 she underwent a descending aortic aneurysm repair. She reports having no issues with that since that time. She is not taking anticoagulant medications. She denies any history of aortic dissection. She sees Dr. James from cardiology and Dr. Amador at [facility] primary care. Previously had been on HCTZ when she lived in [place] and has been taken off that she thinks due to hypokalemia. 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 EKG sinus rate of 74 bpm normal axis [place] interval extended to T10, QTC 407. No ST segment elevations or depressions no TWI For blood pressure control she was put on Nitropaste and given IV labetalol with minimal improvement admitted for further care 07/21: Transition to labetalol 200 mg twice daily Imdur 30 Aldactone. Systolic blood pressure still still 217 diastolic 105. Vitals/I&O Vitals/I&O: Vital Signs Date Time Temp Pulse Resp B/P (MAP) Pulse Ox O2 Delivery O2 Flow Rate FiO2 07/21/21 10:50 99.7 84 18 217/105 (142) 93 Room Air 99.7 I & O 07/20/21 07/20/21 07/21/21 15:00 23:00 07:00 Intake Total 840 ml 400 ml 0 ml Output Total 700 ml 700 ml Balance 140 ml -300 ml 0 ml Physical Exam General: Alert, Oriented X3, Cooperative, mild distress Heart: Regular rate (SR), Normal S1, Normal S2, Other (3/6 systolic murmur to SYL border) Abdomen: Normal bowel sounds, Soft, No tenderness, No hepatosplenomegaly, No masses Extremities: No clubbing, No cyanosis, No edema, Normal pulses, No tenderness/swelling Skin: No rashes, No breakdown, No significant lesion Labs Labs: Laboratory Tests Test 07/20/21 16:08 07/20/21 20:11 07/21/21 07:08 07/21/21 11:18 Glucose (Fingerstick) 214 mg/dL (70-99) 158 mg/dL (70-99) 153 mg/dL (70-99) 261 mg/dL (70-99) Assessment and Plan Assessmemt and Plan Problems Medical Problems: (1) Chest pain Status: Acute (2) Hypertensive emergency Status: Acute Comment Review of Relevant I have reviewed the following items gracia (where applicable) has been applied. Medications: Current Medications Medications (Trade) Dose Ordered Sig/Mendoza Route PRN Reason Start Time Stop Time Status Last Admin Dose Admin Ferrous Sulfate (Feosol) 325 mg DAILYWBKFT PO 07/21/21 08:00 07/21/21 09:14 Isosorbide Mononitrate (Imdur) 30 mg DAILY PO 07/20/21 14:45 07/21/21 09:17 Spironolactone (Aldactone) 25 mg DAILY PO 07/21/21 09:00 07/21/21 09:17 Justifications for Admission Other Justification ANGELIKA ELLIOTT MD Jul 21, 2021 12:18
[2021-07-21] MEDS ORDERED: LABETALOL HCL 200 MG TABLET PO SCH (12:30)
[2021-07-21] MEDS ORDERED: AMLO-187 PO (13:27)
[2021-07-21] MEDS ORDERED: LOSA100T14 PO (13:27)
[2021-07-21] MEDS ORDERED: ISOS30TA68 PO (13:27)
[2021-07-21] MEDS ORDERED: LABE200T4 PO (13:27)
--- NOTE | 2021-07-21 13:30 | PDOC3 ---
Discharge Summary Visit Information Date of Admission: Jul 19, 2021 Date of Discharge: Jul 21, 2021 Admitting Diagnosis: HTN emergency Final Diagnosis Problems Medical Problems: (1) Chest pain Status: Acute (2) Hypertensive emergency Status: Acute Brief Hospital Course Allergies Allergies Coded Allergies Type Severity Reaction Last Updated Verified No Known Drug Allergies 07/19/21 No Vital Signs Vital Signs Date Time Temp Pulse Resp B/P (MAP) Pulse Ox O2 Delivery O2 Flow Rate FiO2 07/21/21 12:46 84 217/105 07/21/21 10:50 99.7 18 93 Room Air 99.7 Lab Results Laboratory Tests Test 07/19/21 16:00 07/19/21 21:25 07/19/21 22:00 07/20/21 05:00 White Blood Count 7.7 x10^3/uL (4.0-11.0) Red Blood Count 4.50 x10^6/uL (3.50-5.40) Hemoglobin 13.4 g/dL (12.0-15.5) Hematocrit 40.8 % (36.0-47.0) Mean Corpuscular Volume 91 fL (79-100) Mean Corpuscular Hemoglobin 30 pg (25-35) Mean Corpuscular Hemoglobin Concent 33 g/dL (31-37) Red Cell Distribution Width 14.0 % (11.5-14.5) Platelet Count 232 x10^3/uL (140-400) Neutrophils (%) (Auto) 65 % (31-73) Lymphocytes (%) (Auto) 25 % (24-48) Monocytes (%) (Auto) 8 % (0-9) Eosinophils (%) (Auto) 1 % (0-3) Basophils (%) (Auto) 1 % (0-3) Neutrophils # (Auto) 5.0 x10^3/uL (1.8-7.7) Lymphocytes # (Auto) 1.9 x10^3/uL (1.0-4.8) Monocytes # (Auto) 0.6 x10^3/uL (0.0-1.1) Eosinophils # (Auto) 0.1 x10^3/uL (0.0-0.7) Basophils # (Auto) 0.0 x10^3/uL (0.0-0.2) Sodium Level 140 mmol/L (136-145) Potassium Level 3.6 mmol/L (3.5-5.1) Chloride Level 103 mmol/L (98-107) Carbon Dioxide Level 30 mmol/L (21-32) Anion Gap 7 (6-14) Blood Urea Nitrogen 12 mg/dL (7-20) Creatinine 0.8 mg/dL (0.6-1.0) Estimated GFR (Cockcroft-Gault) 90.1 BUN/Creatinine Ratio 15 (6-20) Glucose Level 140 mg/dL (70-99) Calcium Level 9.6 mg/dL (8.5-10.1) Magnesium Level 2.0 mg/dL (1.8-2.4) Total Bilirubin 0.5 mg/dL (0.2-1.0) Aspartate Amino Transf (AST/SGOT) 18 U/L (15-37) Alanine Aminotransferase (ALT/SGPT) 31 U/L (14-59) Alkaline Phosphatase 111 U/L (46-116) Troponin I High Sensitivity 9 ng/L (4-50) 9 ng/L (4-50) 9 ng/L (4-50) YJ-Vcw-P-Type Natriuretic Peptide 77 pg/mL (0-124) Total Protein 8.2 g/dL (6.4-8.2) Albumin 3.8 g/dL (3.4-5.0) Albumin/Globulin Ratio 0.9 (1.0-1.7) Lipase 65 U/L (73-393) Glucose (Fingerstick) 230 mg/dL (70-99) Triglycerides Level 79 mg/dL (0-150) Cholesterol Level 123 mg/dL (0-200) LDL Cholesterol, Calculated 67 mg/dL (0-100) VLDL Cholesterol, Calculated 16 mg/dL (0-40) Non-HDL Cholesterol Calculated 83 mg/dL (0-129) HDL Cholesterol 40 mg/dL (40-60) Cholesterol/HDL Ratio 3.1 Thyroid Stimulating Hormone (TSH) 1.679 uIU/mL (0.358-3.74) Test 07/20/21 07:49 07/20/21 10:55 07/20/21 16:08 07/20/21 20:11 Glucose (Fingerstick) 223 mg/dL (70-99) 233 mg/dL (70-99) 214 mg/dL (70-99) 158 mg/dL (70-99) Test 07/21/21 07:08 07/21/21 11:18 Glucose (Fingerstick) 153 mg/dL (70-99) 261 mg/dL (70-99) Laboratory Tests Test 07/20/21 16:08 07/20/21 20:11 07/21/21 07:08 07/21/21 11:18 Glucose (Fingerstick) 214 mg/dL (70-99) 158 mg/dL (70-99) 153 mg/dL (70-99) 261 mg/dL (70-99) Brief Hospital Course Ms Cottrell is a 56 year old female w/ PMHx High Cholesterol, Hypertension, Vascular Disease, aortic aneursym s/p endograft repair who presents with an episode of chest pain which began last night. She describes midsternal chest pressure, radiating across her right and left chest, 3 to her left back. Sometimes lasted several minutes, then resolved. She decided to go to bed, then when she woke up today she has had intermittent midsternal chest pressure. She denies any dyspnea, denies pleuritic pain. Denies cough hemoptysis. Denies fevers or chills. She denies dizziness or diaphoresis. Denies lower extremity pain or swelling. Denies syncope or near syncope. Denies exertional pain. Several years ago in 2016 she underwent a descending aortic aneurysm repair. She reports having no issues with that since that time. She is not taking anticoagulant medications. She denies any history of aortic dissection. She sees Dr. James from cardiology and Dr. Amador at [facility] primary care. Previously had been on HCTZ when she lived in [place] and has been taken off that she thinks due to hypokalemia. 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 EKG sinus rate of 74 bpm normal axis [place] interval extended to T10, QTC 407. No ST segment elevations or depressions no TWI For blood pressure control she was put on Nitropaste and given IV labetalol with minimal improvement admitted for further care 07/21: Transition to labetalol 200 mg twice daily Imdur 30 Aldactone. Systolic blood pressure still still 217 diastolic 105. Repeat blood pressure systolic 146 diastolic 68. Feeling significantly improved Echo: The left ventricle is normal size. The left ventricular systolic function is normal and the ejection fraction is within normal range. LV ejection fraction is 60 to 65%. There is normal LV segmental wall motion. There is mild to moderate concentric left ventricular hypertrophy. Doppler and Color Flow revealed no significant aortic regurgitation. There is no significant aortic valvular stenosis. Doppler and Color-flow revealed trace mitral regurgitation. Doppler and Color Flow revealed mild tricuspid regurgitation. Estimated PAP 32 mmHg. Consults: Cardiology Problem list: Chest pain - due to high BP HTN urgency - labile, will add imdur given nitro improvement. previously stopped on thiazide HLP - statin DM2 - sliding scale insulin, sulfonylurea Hx of descending aortic aneurysm repair: stable per CTA Greater than 30 minutes spent on d/c home with self care Discharge Information Condition at Discharge: Improved Follow Up: Weeks (1) Disposition/Orders: D/C to Home Scheduled Amlodipine Besylate (Amlodipine Besylate) 10 Mg Tablet, 10 MG PO DAILY for HTN for 30 Days, #30 Ref 5 Prescribed by: ANGELIKA ELLIOTT MD on 07/21/211326 Ascorbic Acid (Vitamin C) 500 Mg Capsule.er, 1,000 MG PO DAILY for , (Reported) Entered as Reported by: Carla Cosme on 07/19/212100 Last Action: Converted on 07/20/21756 by ANGELIKA ELLIOTT MD Aspirin (Aspirin) 81 Mg Tab.chew, 1 TAB PO DAILY for , #30 Ref 3 (Reported) Entered as Reported by: Carla Cosme on 07/19/212100 Last Action: Continued on 07/20/21756 by ANGELIKA ELLIOTT MD Ferrous Sulfate (Ferrous Sulfate) 325 Mg Tablet.dr, 325 MG PO DAILY for , (Reported) Entered as Reported by: Carla Cosme on 07/19/212100 Last Action: Converted on 07/20/21756 by ANGELIKA ELLIOTT MD Glimepiride (Glimepiride) 4 Mg Tablet, 1 TAB PO DAILY for , #30 Ref 5 (Reported) Entered as Reported by: Carla Cosme on 07/19/212100 Last Action: Converted on 07/20/21756 by ANGELIKA ELLIOTT MD Isosorbide Mononitrate (Isosorbide Mononitrate Er) 30 Mg Tab.er.24h, 30 MG PO DAILY for HTN for 30 Days, #30 Ref 5 Prescribed by: ANGELIKA ELLIOTT MD on 07/21/21 1327 Labetalol Hcl (Labetalol Hcl) 200 Mg Tablet, 200 MG PO BID for HTN for 30 Days, #60 Ref 5 Prescribed by: ANGELIKA ELLIOTT MD on 07/21/21 1327 Losartan Potassium (Losartan Potassium) 100 Mg Tablet, 100 MG PO DAILY for HYPERTENSION for 30 Days, #30 Ref 5 Prescribed by: ANGELIKA ELLIOTT MD on 07/21/217 Metformin Hcl (Metformin Hcl Er) 750 Mg Tab.er.24h, 1 TAB PO DAILY for for 30 Days, #30 Ref 0 (Reported) Entered as Reported by: Carla Cosme on 07/19/212100 Last Action: Converted on 07/19/212213 by ANGELIKA SCHNEIDER MD Discontinued Medications Carvedilol (Carvedilol) 25 Mg Tablet, 25 MG PO BIDWMEALS for CARDIAC, (Reported) Entered as Reported by: Carla Cosme on 07/19/212100 Last Action: Converted on 07/19/212213 by ANGELIKA SCHNEIDER MD Justicifation of Admission Dx: Justifications for Admission: Justification of Admission Dx: Yes ANGELIKA ELLIOTT MD Jul 21, 2021 13:30
[2021-07-21 15:00] VITALS: BP 163/76
== END 2021-07-21 18:00 | disposition home or self-care (01) | DRG 305 ==
LOC: ER 15:43 → 6 SOUTH 18:20
PROVIDERS: ADMIT Student in an Organized Health Care Education/Training Program; ATTEND Student in an Organized Health Care Education/Training Program
DX: I16.1 Hypertensive emergency (principal); E11.9 Type 2 diabetes mellitus without complications; E78.00 Pure hypercholesterolemia, unspecified; E78.5 Hyperlipidemia, unspecified; I11.9 Hypertensive heart disease without heart failure; I71.9 Aortic aneurysm of unspecified site, without rupture; Z82.49 Family history of ischemic heart disease and other diseases of the circulatory system; Z83.3 Family history of diabetes mellitus; Z86.79 Personal history of other diseases of the circulatory system; Z91.11 Patient's noncompliance with dietary regimen; K21.9 Gastro-esophageal reflux disease without esophagitis
CPT/HCPCS: 36415; 71275; 74174; 80053; 80061; 82962; 83690; 83735; 83880; 84443; 84484; 85025; 93005; 93306; 96374; J0360; J1815; J3490; J7030; Q9967; 99285-25; C8929; G0378